=== PATIENT | male | born 1980 | race Caucasian/White ===

== ENCOUNTER 2024-07-09 11:24 | Day surgery (SDC) | payer BC ==
[2024-07-09] MEDS ORDERED: ceFAZolin 2 GM in Sodium Chloride 0.9% 50 ML IV ONE (11:44)
[2024-07-09] MEDS ORDERED: Midazolam 1 MG/ML 2 ML SDV ONE (12:24)
[2024-07-09] MEDS ORDERED: dexmedeTOMIDine HCl 200 MCG/2 ML SDV ONE (12:25)
[2024-07-09] MEDS ORDERED: fentaNYL 100 MCG/2 ML SDV ONE (12:25)
[2024-07-09] MEDS: Diphtheria,Pertussis(Acell),Tetanus Vaccine 0.5 ML Syringe IM ONE (12:27)
[2024-07-09] MEDS: ceFAZolin 2 GM Vial IVPUSH ONE (12:28)
[2024-07-09] MEDS: Lidocaine 1% 10 ML MDV ONE (13:12)
[2024-07-09] MEDS: Bupivacaine 0.25% 10 ML SDV ONE (13:12)
[2024-07-09] MEDS ORDERED: Lactated Ringers 1,000 ML ONE (13:22)
== END 2024-07-09 14:36 | disposition home or self-care (01) ==
LOC: JD.ED 11:24 → JD.SDS 12:31
PROVIDERS: ATTEND Orthopaedic Surgery
DX: Z89.021 Acquired absence of right finger(s) (principal); F17.210 Nicotine dependence, cigarettes, uncomplicated
CPT/HCPCS: 26951; 73140; 90471; 90715; 96374; 99284; J0665; J0690; J2250; J3010; J7120; 01830; J3490